=== PATIENT | male | born 1980 | race Two or more races ===

== ENCOUNTER 2024-12-12 07:34 | Day surgery (SDC) | payer MEDICAID, SELFPAY ==
[2024-12-12] VITALS (10 sets, daily range): BP systolic 140–166; BP diastolic 77–102; PULSE 79–107; RESP 16–98; TEMP 36.2–37.6; O2SAT 97–100; BMI 35.9
--- NOTE | 2024-12-12 07:59 | XR_ITS ---
Examination: CT abdomen and pelvis without contrast. Coronal 3-D reconstructions. Sagittal 2-D reconstructions. Date and time of exam:December 12, 2024 0805 hours INDICATIONS: Abdominal pain nausea vomiting today CTDI: vol (mGy): 13.6 DLP: (mGycm): 1050 Technique: Axial images of the abdomen have been obtained, 3 mm slice thickness Intravenous contrast material has not been administered. Low dose protocols were performed. One or more of the following dose reduction techniques were used; automated exposure control, adjustment of the mA and/or KV according to patient size, use of iterative reconstruction technique. Findings: No focal liver or splenic lesions Cholelithiasis, gallbladder wall appears thickened and inflamed No pancreatic or adrenal mass No renal or ureteral calculi No bowel obstruction No free air No pericecal inflammatory change 6 mm bladder calculus Mild osteopenia IMPRESSION: Recommend hepatobiliary sonography follow-up to confirm acute calculus cholecystitis 6 mm bladder calculus
[2024-12-12 08:45] LABS: Basophils # (Auto) 0.1 Thou/mm3 (0.0-0.2); Basophils % (Auto) 1 % (0-2.5); Eosinophils # (Auto) 0.1 Thou/mm3 (0.0-0.5); Eosinophils % (Auto) 1 % (0-10); Hematocrit 45.1 % (41.0-53.0); Hemoglobin 15.9 g/dL (13.5-16.0); Immature Granulocytes % (Auto) 1 % (0-0); Lymphocytes # (Auto) 1.4 Thou/mm3 (1.0-4.8); Lymphocytes % (Auto) 10 % (10-50); Mean Corpuscular HGB Conc 35.3 g/dl (31.0-37.0); Mean Corpuscular Hemoglobin 30.8 pg (25.0-35.0); Mean Corpuscular Volume 87 fL (80-100); Monocytes # (Auto) 1.5 Thou/mm3 (0.0-0.8); Monocytes % (Auto) 12 % (0-12); Neutrophils % (Auto) 76 % (37-80); Nucleated Red Blood Cell % 0 /100 WBC (0); Platelet Count 192 Thou/mm3 (140-440); RDW Standard Deviation 40.3 fL (35.1-43.9); Red Blood Count 5.16 Miln/mm3 (4.50-5.90); White Blood Count 13.2 Thou/mm3 (3.8-10.6)
--- NOTE | 2024-12-12 08:57 | PD.EDRME ---
Rapid Medical Screening Exam RME Arrival date/time: 12/12/24 07:34 44-year-old male presents to the emergency department today complains of abdominal pain Chief Complaint: Abdominal Pain Time Seen by Provider: 12/12/24 07:42 Vital signs: Vital Signs Temperature 98.3 F 12/12/24 08:02 Pulse Rate 107 H 12/12/24 08:02 Respiratory Rate 16 12/12/24 08:02 Blood Pressure 152/98 H 12/12/24 08:02 Pulse Oximetry (%) 97 12/12/24 08:02 Oxygen Delivery Method Room Air 12/12/24 08:02
[2024-12-12 09:26] LABS: Alanine Aminotransferase 8 U/L (10-49); Albumin, Serum 4.7 gm/dL (3.5-5.0); Albumin/Globulin Ratio 1.5 (1.2-2.2); Alkaline Phosphatase 140 U/L (46-116); Anion Gap 14 (7-16); Aspartate Amino Transferase < 10 U/L (0-34); BUN/Creatinine Ratio 10 Ratio (12-20); Bilirubin,Total 1.1 mg/dL (0.3-1.2); Blood Urea Nitrogen 10 mg/dL (9-23); Calcium 10.1 mg/dL (8.3-10.6); Calcium (Corrected) 10.1 mg/dL (8.5-10.1); Chloride 101 mMol/L (98-107); Globulin 3.2 gm/dL (2.3-3.5); Glucose 281 mg/dL (74-106); Lipase 50 U/L (12-53); Osmolality,Calculated 279 (275-295); Potassium 3.6 mMol/L (3.4-5.1); Sodium 135 mMol/L (136-145); Total Protein 7.9 gm/dL (5.7-8.2); eGFR > 60 See Note
--- NOTE | 2024-12-12 09:53 | XR_ITS ---
Examination: Abdomen sonogram, Limited Date and time of exam: December 12, 2024 1007 hours INDICATIONS: Abdominal pain with nausea vomiting beginning 3 days ago Technique: Real-time milton scale transabdominal sonographic images of the upper abdomen obtained. Findings: Cholelithiasis, the largest stone in the gallbladder neck 2.7 cm Gallbladder wall 12 mm with edema Common bile duct 0.3 cm Liver 20.1 cm fatty infiltration hyperechoic mass with lobular margins in the right lobe of the liver, 9.3 x 8.4 cm Normal hepatopedal portal venous flow Patent IVC IMPRESSION: Acute calculus cholecystitis Recommend [address] scan abdomen liver pre and postcontrast to assess the right lobe liver lesion
[2024-12-12 11:00] LABS: Collection Type, Urine Clean Catch; Squamous Epithelial Cell,Urine 0 /hpf (0-5)
[2024-12-12 11:10] LABS: Bilirubin,Urine Negative (Negative); Blood,Urine Negative (Negative); Clarity,Urine Clear (Clear/Hazy); Color,Urine Lt-Yellow (Lt Yel-Yel); Culture Indicated,Urine Not Indicated; Glucose, Urine 4+ (Negative); Hyaline Casts,Urine < 1 /hpf (0-1); Ketones,Urine 4+ (Negative); Leukocyte Esterase,Urine Negative (Negative); Nitrite,Urine Negative (Negative); PH,Urine 5.5 (5.0-7.0); Protein,Urine 1+ (Neg - Trace); RBC,Urine 2 /hpf (0-3); Specific Gravity,Urine 1.045 (1.001-1.035); Urobilinogen,Urine Negative mg/dL (0.0-1.0); WBC,Urine < 1 /hpf (0-5)
--- NOTE | 2024-12-12 12:08 | PD.EDABDPN ---
ED Abdominal Pain RME/HPI General Chief Complaint: Abdominal Pain Stated complaint: ABD PAIN, N/V, DIARRHEA Time seen by provider: 12/12/24 07:42 Arrival date/time: 12/12/24 07:34 RME / HPI RME / HPI narrative: 12/12/24 07:34 44-year-old male presents to the emergency department today complains of abdominal pain DR. XIE MAIN ED EVALUATION: 44 year old male with no past medical history presents to the Emergency Department with complaint of right upper abdominal pain onset 3 days. Pain is described as like a knot , aching and rated moderate in severity. He states these last 3 nights he has not been able to sleep well from the pain. Yesterday, he had an episode of diarrhea. No other symptoms reported at this time. Related Data Allergies Allergy/AdvReac Type Severity Reaction Status Date / Time No Known Allergies Allergy Verified 12/12/24 07:36 Review of Systems Review of Systems Systems Reviewed: All systems reviewed, normal except as documented Narrative Review of Systems: GEN: No fever, no chills, no weight loss EYES: No discharge, no visual changes, no pain HEENT: No ear pain, no congestion, no sore throat PULM: No shortness of breath, no cough, no congestion CV: No chest pain, no dyspnea on exertion, no palpitations GI: No nausea, no vomiting, x1 diarrhea episode yesterday, + right upper abdominal pain, no constipation : No frequency, no urgency and no dysuria MUSC/SKEL: No joint pain, no back pain SKIN: No rash PSYCH: No hallucinations, no depression HEME/LYMPH: No easy bleeding or bruising tendencies NEURO: No weakness, no headache Past Medical History Social History SMOKING STATUS: Never smoker SUBSTANCE USE: does not use ALCOHOL: Never ED Exam Narrative Physical exam: GENERAL APPEARANCE: alert and oriented x 4, well-developed, well-nourished, no acute distress VITALS: All vitals were reviewed and the pulse ox is 97% on room air, which is normal according to my interpretation. HEENT: Normocephalic, atraumatic; pupils equal, round, reactive to light; EOMI; mucous membranes pink, moist; oropharynx clear NECK: Supple LUNGS: CTABL; no wheezes, no rales, no rhonchi HEART: Regular rate, regular rhythm; normal S1, S2; no murmurs ABDOMEN: there is some tenderness in the right flank and right upper quadrant area; normal BS; no masses, no organomegaly, no hernia BACK: no CVA tenderness EXTREMITIES: atraumatic; no edema NEUROLOGIC: awake; alert and oriented x4; cranial nerves II-XII grossly intact; no focal sensory or motor deficits PSYCHIATRIC: appropriate mood and affect SKIN: warm, dry, normal color; no rashes Course Quality Measures none Orders Category Date Time Status NPO NOW Care 12/12/24 12:42 Active Diet NPO (NOW) Diet 12/12/24 12:[address] abdomen pelvis wo con Stat Exams 12/12/24 07:59 Completed US gall bladder Stat Exams 12/12/24 09:53 Completed CBC Stat Lab 12/12/24 08:25 Completed Comprehensive Metabolic Panel Stat Lab 12/12/24 08:25 Completed Lipase Stat Lab 12/12/24 08:25 Completed UA, C/S IF [Urinalysis, C/S if Indicated] Stat Lab 12/12/24 10:57 Completed Morphine Inj Med 12/12/24 12:38 Discontinued 5 mg IVP X1 ONE Ondansetron Inj [Zofran Inj] Med 12/12/24 12:38 Discontinued 4 mg IV X1 ONE Piper/Tazo Inj [Zosyn Inj] 3.375 gm Med 12/12/24 12:38 Active SODIUM CHLORIDE 0.9% (Popper) [Ns 0.9% (P)] 50 ml IV X1 Sodium Chloride 0.9% 1000 ml [Ns] 1,000 ml Med 12/12/24 12:38 Active IV 999 mls/hr Vital Signs Vital signs: Vital Signs Temperature 98.3 F 12/12/24 08:02 Pulse Rate 107 H 12/12/24 08:02 Respiratory Rate 16 12/12/24 08:02 Blood Pressure 152/98 H 12/12/24 08:02 Pulse Oximetry (%) 97 12/12/24 08:02 Oxygen Delivery Method Room Air 12/12/24 08:02 Abdominal Pain MDM MDM Narrative MDM Narrative:: IMonique am scribing for and in the presence of Dr. Xie. Patient data External records reviewed:: None (no previous visits) Clinical information provided by:: patient Social determinants that could affect healthcare access:: none Patient has the following chronic illnesses:: Denies any PMHx, surgeries, daily medications, or known allergies. How is presenting disease/condition affected by chronic disease/condition?: no chronic disease Evaluation data The following diagnostics were reviewed and interpreted by me:: lab results and radiology exam(s) Lab and/or radiology exams considered but not ordered:: none Interpretation Summary: Procedure(s): US gall bladder Accession Number(s): [id number] cc: Kallie MOODY),Aurelio BOWEN; Abdiel Henao MD; NO PRIMARY/FAMILY,PHYSICIAN~ Examination: Abdomen sonogram, Limited Date and time of exam: December 12, 2024 1007 hours INDICATIONS: Abdominal pain with nausea vomiting beginning 3 days ago Technique: Real-time milton scale transabdominal sonographic images of the upper abdomen obtained. Findings: Cholelithiasis, the largest stone in the gallbladder neck 2.7 cm Gallbladder wall 12 mm with edema Common bile duct 0.3 cm Liver 20.1 cm fatty infiltration hyperechoic mass with lobular margins in the right lobe of the liver, 9.3 x 8.4 cm Normal hepatopedal portal venous flow Patent IVC IMPRESSION: Acute calculus cholecystitis Recommend [address] scan abdomen liver pre and postcontrast to assess the right lobe liver lesion Dictated By: Abdiel Henao MD Procedure(s): CT abdomen pelvis wo con Accession Number(s): [id number] cc: Kallie MOODY),Aurelio BOWEN; Abdiel Henao MD; NO PRIMARY/FAMILY,PHYSICIAN~ Examination: CT abdomen and pelvis without contrast. Coronal 3-D reconstructions. Sagittal 2-D reconstructions. Date and time of exam:December 12, 2024 0805 hours INDICATIONS: Abdominal pain nausea vomiting today CTDI: vol (mGy): 13.6 DLP: (mGycm): 1050 Technique: Axial images of the abdomen have been obtained, 3 mm slice thickness Intravenous contrast material has not been administered. Low dose protocols were performed. One or more of the following dose reduction techniques were used; automated exposure control, adjustment of the mA and/or KV according to patient size, use of iterative reconstruction technique. Findings: No focal liver or splenic lesions Cholelithiasis, gallbladder wall appears thickened and inflamed No pancreatic or adrenal mass No renal or ureteral calculi No bowel obstruction No free air No pericecal inflammatory change 6 mm bladder calculus Mild osteopenia IMPRESSION: Recommend hepatobiliary sonography follow-up to confirm acute calculus cholecystitis 6 mm bladder calculus Dictated By: Abdiel Henao MD Medications / Prescriptions Medications or Prescriptions considered but not ordered:: none Medication administrations:: Medication Administration History Sodium Chloride (Ns) 1,000 mls @ 999 mls/hr IV .Q1H1M ONE Stop: 12/12/24 13:38 Piperacillin Sod/Tazobactam (Sod 3.375 gm/ Sodium Chloride) 50 mls @ 100 mls/hr IV X1 ONE Stop: 12/12/24 13:07 Discontinued Medications Morphine Sulfate (Morphine Sulf Inj 10 Mg/Ml Vial) 5 mg IVP X1 ONE Stop: 12/12/24 12:39 Ondansetron HCl (Ondansetron Inj 2 Mg/Ml Inj 2 Ml) 4 mg IV X1 ONE Stop: 12/12/24 12:39 see above if any Consultations Consultation(s) initiated? (list below): Yes Consultation #1 (Physician, Specialty, Details): Discussed test HPI, PMHx, lab, radiology results and/or management with Dr. Waldron. Will consult an admission to the hospitalist. Time: 12:40 Consultation #2 (Physician, Specialty, Details): Discussed test HPI, PMHx, lab, radiology results and/or management with hospitalist. Will admit for further evaluation and management. Accepts patient for admission. Time: 12:45 Diagnosis Differential diagnosis abdominal pain: abdominal pain, calculus of kidney, pancreatitis and other (gallstones) Most likely diagnosis given after review of the tests above:: Acute calculus cholecystitis Admission Indicated Admission indicated?: indicated Admission Request Was there a request for admission?: Yes Admission Attestation Admission request attestation: Discussed case with [] from Hospitalist service regarding admission. Discussed patients ED course, exam findings, labs, and radiology results. The Hospitalist [agrees,declines] to accept the patient for admission. Disposition Plan Disposition Plan: Admit Discharge Plan Plan Patient Disposition: Admit Acute Care w/in Hospital Prescriptions/Referrals Referrals: No Primary/Family,Physician [Primary Care Provider] - In 1 week Problem List Clinical Impression: Acute calculous cholecystitis Patient/Caregiver Discharge Instructions Print Language: Salvadorean Stand Alone Forms: Audrey Award Info., Patient Portal Info Letter
--- NOTE | 2024-12-12 13:05 | ESCONSULT_ITS ---
HPI Consult details Consult date: 12/12/24 Reason for consultation narrative: Right upper quadrant abdominal pain with nausea and vomiting History of present illness: 44-year-old male with history of hypertension and diabetes presented to the emergency department with worsening abdominal pain. His pain started 3 days ago in the epigastric and right upper quadrant. Over the past 2 days his pain has been getting progressively worse and associated with nausea and vomiting. He denies fever, chills, jaundice or discoloration of urine or stool. She denies having similar symptoms in the past. His WBC is elevated at 13.2. His liver en zymes are unremarkable. Abdominal ultrasound and CT scan revealed gallstones with gallbladder wall thickening and edema. Review of Systems Constitutional Constitutional: Denies chills and Denies fever(s) Cardiovascular Cardiovascular: Denies chest pain Respiratory Respiratory: Denies cough Gastrointestinal Gastrointestinal: Reports abdominal pain, Reports nausea and Reports vomiting Genitourinary Genitourinary: Denies difficulty urinating Hematologic/Lymphatic Hematologic/Lymphatic: Denies easy bleeding and Denies easy bruising Past Medical History Surgical History OTHER SURGICAL HX: Right hip surgery Social History SMOKING STATUS: Never smoker SUBSTANCE USE: does not use ALCOHOL: Never Meds Home Medications and Allergies Allergies Allergy/AdvReac Type Severity Reaction Status Date / Time No Known Allergies Allergy Verified 12/12/24 07:36 Exam Vital Signs Temp Pulse Resp BP Pulse Ox O2 Del Method 99.6 F 90 18 153/98 H 98 Room Air 12/12/24 12:11 12/12/24 12:11 12/12/24 12:11 12/12/24 12:11 12/12/24 12:11 12/12/24 12:11 Constitutional Constitutional: no acute distress Routine HEENT Exam Eye: Present PERRL (Anicteric sclera) Routine Abdominal Exam Abdominal: Present soft, normoactive bowel sounds and tenderness (Right upper quadrant tenderness to palpation with guarding, positive Hope sign); Absent distended Results Results: Laboratory Laboratory results: results reviewed Results: Imaging CT scan - abdomen: report reviewed and image reviewed CT scan - pelvis: report reviewed and image reviewed US - abdomen: report reviewed and image reviewed Assessment & Plan Problem List (1) Calculus of gallbladder with acute cholecystitis without obstruction: Status: Acute Plan Will take patient to OR for laparoscopic possible open cholecystectomy. Risks include but not limited to infection, bleeding, injury to bowel, liver, stomach, bile duct, retained stone, bile leak, abdominal sepsis and or abdominal abscess, need for further procedure and or operation discussed with the patient. Benefits and alternatives explained to him, all his questions answered, he agreed and consented to proceed with the operation.
[2024-12-12] MEDS: PIPER/TAZO INJ 3.375 GM in SODIUM CHLORIDE 0.9% (Popper) 50 ML IV ×2 (13:09→21:14)
[2024-12-12] MEDS: SODIUM CHLORIDE 0.9% 1000 ML 1,000 ML 999 ML IV (13:11)
--- NOTE | 2024-12-12 13:19 | PC.NURSE ---
WHEN PLACING IV, THIS RN GOT A CALL FOR REPORT TO SURGERY, RN ASKED THIS RN NOT TO ADMINISTER MORPHINE SO PT CAN BE SOUND OF MIND TO SIGN CONSENTS. THIS RN WASTED MORPHINE W/FELLOW RN.
--- NOTE | 2024-12-12 14:49 | ESOP_ITS ---
Date of Procedure 12/12/24 Pre Op Diagnosis Cholelithiasis with acute cholecystitis Post Op Diagnosis Cholelithiasis with acute cholecystitis Procedure Laparoscopic cholecystectomy Findings Distended gallbladder with gallbladder wall thickening, significant pericholecystic inflammation and large stone near the neck of the gallbladder Procedure Description Patient was brought into the operating room in supine position. After administration of general endotracheal anesthesia abdomen was prepped and draped in standard surgical manner. A Veress needle was inserted through the umbilicus and pneumoperitoneum was obtained up to 15 mmHg. The Veress needle was then removed, a 5 mm infraumbilical incision was made and the 5mm trocar was i nserted. Laparoscopic camera was placed. Under direct visualization a laparoscopic camera a 10 mm trocar was placed in subxiphoid and two 5 mm trocars placed in right upper quadrant. There were some adhesions of omentum into the inferior aspect of the gallbladder and the liver that was divided with electrocautery. The gallbladder was identified and was noted to be tense, distended and thick-walled. The gallbladder was decompressed with an aspirator. There was significant amount of pericholecystic inflammation and a large stone near the neck of the gallbladder. The gallbladder was retracted cephalad and laterally. Dissection started near the infundibulum of gallbladder where cystic duct and gallbladder junction clearly identified. The cystic duct was circumferentially dissected off the peritoneum and surrounding inflammatory tissue. The critical view of safety was clearly demonstrated. Cystic duct was then divided between 2 endoclips proximally and one distally. The cystic artery was similarly dissected and divided. The gallbladder was then from the liver bed using electrocautery. The gallbladder was then placed inside an Endo Catch and removed from the abdomen utilizing subxiphoid trocar site. The area was copiously and thoroughly washed and irrigated, all the fluid was suctioned and the suction fluid returned clear. Hemostasis achieved using electrocautery, also topical hemostatic agent using powdered Surgicel and snow placed at the gallbladder fossa to further assure hemostasis. Endoclips noted be in place and intact without any bleeding or any leakage. Hemostasis was adequate and satisfactory. The subxiphoid trocar sites fascial defect was closed with 0 Vicryl using Endo Closure device. Instruments and trocars removed, pneumoperitoneum was evacuated and the incisions closed with 4-0 Monocryl in subcuticular fashion. Instrument needle and sponge counts were all reported to be correct X2. Patient tolerated the procedure well, was extubated, breathing spontaneously and without difficulty and was transferred to postanesthesia care in stable condition. Anesthesia GETA and local Pathology / specimen Other (Gallbladder and contents) Estimated Blood Loss 50 Condition Stable Disposition PACU Surgeon Dorys Waldron MD Surgical Staff Operation Date: 12/12/24 13:15 Case Staff BONE CHAR KILN TENDER: Rico Heredia RNclinical engineer: Celine Johnson
--- NOTE | 2024-12-12 14:58 | SUR.PHASEI ---
pt received from OR in recovery bay 5. pt obtunded, breathing unlabored on oxymask 10l, oral airway in place. v/s stable. pt dressing to abd dermabond x4 cdi. report received from Pretty KELLY and Juan FLOWERS.
--- NOTE | 2024-12-12 15:30 | SUR.PHASEI ---
pt awake and alert, breathing unlabored on room air. v/s stable. pt dressing abd dermabond x4 cdi. report called to Wilmer KELLY. pt will be transferred to room at this time.
[2024-12-12] MEDS: SODIUM CHLORIDE 0.9% 1000 ML 1,000 ML 100 ML IV (15:54)
--- NOTE | 2024-12-12 16:46 | ESHP_ITS ---
<Statement entered by Thania Heard MD - 12/12/24 17:10> I discussed with and supervised the procurement internship physician who took care of this patient. I personally saw and examined the patient and discussed the assessment and plan with the entire medicine team, including my attending Dr. Galdamez, I agree with the assessment and plan as documented below Patient seen and examined at bedside today. Labs and imaging reviewed. 44-year-old male with past medical history of hypertension, diabetes mellitus type 2 [id number], who came to ED with chief complaint of 3 days of abdominal pain associated to nausea and vomiting. At the ED significant labs show leukocytosis, alk phos 140, CT abdomen pelvis showed 6 mm bladder stone, cholelithiasis as well as gallbladder ultrasound showed acute cholecystitis hyperechoic mass in the liver from the ED general surgery was consulted and patient was admitted for further treatment and management of acute cholecystitis. Thania Heard MD PGY-3 Disclaimer: Despite multiple revisions, due to the dictation software being used, the document bellow may not be free of grammatical errors including phonetic/typographic errors. However, this does not deter from our commitment to providing health care in the patient's best interest in mind. Documentation for date of: 12/12/24 HPI History of Present Illness Chief complaint: Abdominal pain, nausea, vomiting History of present illness: 44 y/o M with PMHx significant for hypertension, diabetes presents with chief complaint abdominal pain x 3 days, with nausea and vomiting x 1 day. Patient states the pain was constant, intermittent, exacerbated by food leading to poor appetite. Patient denies fevers, chills, chest pain, shortness of fatigue, weakness. ED COURSE: Lab significant for: WBC 13.2, alkaline phosphatase 140. Imaging significant for: CT A/P showed 6 mm bladder stone, cholelithiasis. Gallbladder ultrasound showed acute cholecystitis, hyperechoic mass in liver. Patient was taken from ED straight to surgery for laparoscopic cholecystectomy, procedures well-tolerated. PMH: Hypertension, diabetes PSH: Minor procedure on right hip SH: Patient endorses smoking sore daily for 6 months, quit 6 months ago. Quit drinking 6 months ago. Patient reports history of cocaine use, 1 year ago. FH: No known family history Allergies:?NKDA Medications: Lisinopril, glipizide Review of Systems Review of Systems Systems Reviewed: All systems reviewed, normal except as documented Past Medical History Past Medical History Comments PMH COMMENT: PMH: Hypertension, diabetes PSH: Minor procedure on right hip SH: Patient endorses smoking sore daily for 6 months, quit 6 months ago. Quit drinking 6 months ago. Patient reports history of cocaine use, 1 year ago. FH: No known family history Allergies:?NKDA Medications: Lisinopril, glipizide Exam Vital Signs Temp Pulse Resp BP Pulse Ox O2 Del Method O2 Flow Rate 97.4 F 79 19 155/96 H 97 Room Air 5 12/12/24 15:30 12/12/24 15:30 12/12/24 15:30 12/12/24 15:30 12/12/24 15:30 12/12/24 12:11 12/12/24 15:05 Narrative Exam PE: Gen: Well-developed and well-nourished. HEENT: NCAT, PERRLA, EOMI, MMM, anicteric conjunctivae. CVS: normal S1 and S2. RRR. No M/R/G. Resp: CTA B/L. No rhonchi, rales, crackles or wheezing. Abd: soft, non-tender, non-distended. BS+ in all 4 quadrants. Multiple laparoscopic incisions, clean, dry. MSK: Good ROM in BUE & BLE. No edema or rash. Neuro: CN II-XII grossly intact. Strength 5/5 in BUE & BLE. Alert and oriented x3. Psych: appropriate mood and affect. Results: Labs 12/13/24 04:26 12/13/24 04:26 Labs: Short CBC 12/12/24 Range/Units 08:25 WBC 13.2 H (3.8-10.6) Thou/mm3 Hgb 15.9 (13.5-16.0) g/dL Hct 45.1 (41.0-53.0) % Plt Count 192 (140-440) Thou/mm3 BMP 12/12/24 08:25 Sodium 135 L Potassium 3.6 Chloride 101 Carbon Dioxide 20.0 BUN 10 Creatinine 1.0 Glucose 281 H Calcium 10.1 Liver Function 12/12/24 Range/Units 08:25 Total Bilirubin 1.1 (0.3-1.2) mg/dL AST < 10 (0-34) U/L ALT 8 L (10-49) U/L Alkaline Phosphatase 140 H (46-116) U/L Albumin 4.7 (3.5-5.0) gm/dL Urine 12/12/24 Range/Units 10:57 Urine Color Lt-Yellow (Lt Yel-Yel) Urine Clarity Clear (Clear/Hazy) Urine pH 5.5 (5.0-7.0) Ur Specific [place] 1.045 H (1.001-1.035) Urine Protein 1+ A (Neg - Trace) Urine Glucose (UA) 4+ A (Negative) Quality Measures Quality Measures VTE prophylaxis Medications Home Medications and Allergies Allergies Allergy/AdvReac Type Severity Reaction Status Date / Time No Known Allergies Allergy Verified 12/12/24 07:36 Visit Medications Hydrocodone Bitart/Acetaminophen (Hydrocodone/Apap 5/325 Tablet) 1 tab PO Q6HR PRN PRN Reason: PAIN Stop: 12/17/24 15:43 Docusate Sodium (Docusate Sod 100 Mg Capsule) 100 mg PO BID ADAMARIS; Protocol Stop: 01/11/25 20:59 Hydromorphone HCl (Hydromorphone Inj 2 Mg/Ml Vial) 1 mg IVP Q4HR PRN PRN Reason: PAIN Stop: 12/17/24 13:19 Piperacillin Sod/Tazobactam (Sod 3.375 gm/ Sodium Chloride) 50 mls @ 12.5 mls/hr IV Q8HR ADAMARIS; Protocol Stop: 12/19/24 21:59 Sodium Chloride (Ns) 1,000 mls @ 100 mls/hr IV .Q10H ADAMARIS Stop: 01/11/25 13:20 Last Admin: 12/12/24 15:54 Dose: 100 mls/hr Ondansetron HCl (Ondansetron Inj 2 Mg/Ml Inj 2 Ml) 4 mg IV Q6HR PRN; Protocol PRN Reason: NAUSEA OR VOMITING Stop: 01/11/25 13:34 Discontinued Medications Fentanyl Citrate (Fentanyl Cit Inj 50 Mcg/Ml Amp 2ml) 50 mcg IV Q5M PRN PRN Reason: PAIN SCALE 4-6 (Moderate Stop: 12/12/24 15:35 Hydromorphone HCl (Hydromorphone Inj 2 Mg/Ml Vial) 1 mg IVP Q4HR PRN PRN Reason: PAIN Stop: 12/17/24 13:19 Sodium Chloride (Ns) 1,000 mls @ 999 mls/hr IV .Q1H1M ONE Stop: 12/12/24 13:38 Last Admin: 12/12/24 13:11 Dose: 999 mls/hr Piperacillin Sod/Tazobactam (Sod 3.375 gm/ Sodium Chloride) 50 mls @ 100 mls/hr IV X1 ONE Stop: 12/12/24 13:07 Last Admin: 12/12/24 13:09 Dose: 100 mls/hr Acetaminophen (Ofirmev Inj) 1,000 mg in 100 mls @ 250 mls/hr IV PRN PRN PRN Reason: PAIN 1-6 (mild-mod Stop: 12/12/24 15:36 Influenza Virus Vaccine Quadrival (Influenza Virus Quadrivalent 0.5 Ml Syringe) 0.5 ml IMi .ONCE ONE Stop: 12/12/24 15:50 Morphine Sulfate (Morphine Sulf Inj 10 Mg/Ml Vial) 5 mg IVP X1 ONE Stop: 12/12/24 12:39 Last Admin: 12/12/24 13:10 Dose: Not Given Ondansetron HCl (Ondansetron Inj 2 Mg/Ml Inj 2 Ml) 4 mg IV X1 ONE Stop: 12/12/24 12:39 Last Admin: 12/12/24 13:10 Dose: Not Given Assessment & Plan Plan 44 y/o M with PMHx significant for hypertension, diabetes presents with chief complaint abdominal pain x 3 days, with nausea and vomiting x 1 day, admitted for acute cholecystitis requiring laparoscopic cholecystectomy. #Acute cholecystitis s/p laparoscopic cholecystectomy Patient presented with chief complaint of abdominal pain for 3 days, with nausea vomiting x 1 day, exacerbated with food. Imaging confirmed acute calculus cholecystitis. Patient was taken from ED straight to surgery, received laparoscopic cholecystectomy, well-tolerated. Patient seen examined following procedure, doing well, denies abdominal pain. Monitor patient for pain management and toleration of diet, likely DC tomorrow. -[place] 5 1 tab p.o. every 6 hours as needed for pain -Dilaudid 1 mg IV every 4 hours as needed for severe pain -Docusate 100 mg p.o. twice daily -IVF: Normal saline 100 mL/h -Zosyn 3.375 g IV every 8 hours (started 12/16) -Full liquid diet, diabetic -General Surgery following, appreciate recommendations #Diabetes, [id number] Patient has history of diabetes, controlled with p.o. medication. Fingerstick glucose 281 -Insulin sliding scale -A1c ordered, follow-up #6 mm bladder calculus Patient bladder calculus seen on incidental imaging. Patient not complaining of any dysuria. -Tamsulosin #Hypertension Patient has history of hypertension, controlled with outpatient lisinopril. -Holding home meds currently #Liver mass, incidental finding Gallbladder ultrasound showed hyperechoic liver mass. Further imaging not done this time due to recent procedure. -Follow-up outpatient DVT prophylaxis: SCDs GI prophylaxis: None Diet: Diabetic full liquid Lines: Peripheral IV Code status: Full code Plan of care discussed with senior resident Dr. Heard PGY?[address] Galdamez. Eduardo Salazar MD PGY?1 Attending Provider Attestation/Addendum Daya Velasquez, DO, attest that I was physically present for the stoner portions of the service and evaluated the patient with the resident and I reviewed and discussed the case with the resident and agree with the resident's findings and plans of care as documented above Patient is a 44-year-old male with past medical history of hypertension and type II non-insulin dependent diabetes who presented to the ED with worsening abdominal pain for the past 3 days. Patient states that he last ate yesterday and has had several episodes of nausea and vomiting since. Pain is worse with food. Patient states that the pain is around his epigastrium and radiates diffusely. He describes it as sharp pain. Upon evaluation in the ED, CT abdomen pelvis was done showing evidence of cholelithiasis and a 6 mm bladder stone. Gallbladder ultrasound was also done showing acute cholecystitis and an hyperechoic mass in the liver. Patient denies any active alcohol use, drug use or tobacco use. Patient noted to have a leukocytosis 13.2 on presentation he denies any fevers or chills. Will admit to [facility] for acute cholecystitis and place patient on IV Zosyn at this time. Case discussed with surgeon and will go to surgery at this time. He will maintain n.p.o. until after surgery and diet can be advanced by surgeon. Will continue with pain control as needed. Will start patient on Flomax after surgery due to evidence of 6 mm bladder stone. Patient denies any dysuria otherwise. Will inform patient regarding mass and liver for further outpatient workup and imaging.
[2024-12-12] MEDS: INSULIN LISPRO (AdmeLOG) 1 UNIT/0.01 ML UNIT SC (16:59)
[2024-12-12] MEDS: DOCUSATE SOD 100 MG CAPSULE PO (20:04)
[2024-12-12] MEDS: TAMSULOSIN HCL 0.4 MG CAPSULE PO (20:04)
[2024-12-13] VITALS: BP 115/86; PULSE 62; RESP 18; TEMP 36.8; O2SAT 96
[2024-12-13] MEDS: SODIUM CHLORIDE 0.9% 1000 ML 1,000 ML 100 ML IV ×2 (02:14→11:52)
[2024-12-13 04:00] VITALS: BP 130/90; PULSE 96; RESP 18; TEMP 36.4; O2SAT 97
[2024-12-13] MEDS: PIPER/TAZO INJ 3.375 GM in SODIUM CHLORIDE 0.9% (Popper) 50 ML IV ×2 (05:15→13:27)
[2024-12-13 05:44] LABS: Basophils % (Auto) 0 % (0-2.5); Eosinophils % (Auto) 0 % (0-10); Hematocrit 40.2 % (41.0-53.0); Hemoglobin 13.8 g/dL (13.5-16.0); Immature Granulocytes % (Auto) 1 % (0-0); Lymphocytes % (Auto) 8 % (10-50); Mean Corpuscular HGB Conc 34.3 g/dl (31.0-37.0); Mean Corpuscular Hemoglobin 30.7 pg (25.0-35.0); Mean Corpuscular Volume 89 fL (80-100); Monocytes # (Auto) 1.2 Thou/mm3 (0.0-0.8); Monocytes % (Auto) 9 % (0-12); Neutrophils # (Auto) 10.7 Thou/mm3 (1.8-7.7); Neutrophils % (Auto) 82 % (37-80); Nucleated Red Blood Cell % 0 /100 WBC (0); Platelet Count 181 Thou/mm3 (140-440); RDW Standard Deviation 41.5 fL (35.1-43.9)
[2024-12-13 06:06] LABS: Glucose Estimated Average 324 mg/dL (80-131); Hemoglobin A1C 12.9 % Hgb (4.8-6.0)
[2024-12-13 06:36] LABS: Alanine Aminotransferase 98 U/L (10-49); Albumin, Serum 4.3 gm/dL (3.5-5.0); Albumin/Globulin Ratio 1.5 (1.2-2.2); Alkaline Phosphatase 195 U/L (46-116); Anion Gap 13 (7-16); Aspartate Amino Transferase 131 U/L (0-34); BUN/Creatinine Ratio 16 Ratio (12-20); Bilirubin,Total 0.8 mg/dL (0.3-1.2); Blood Urea Nitrogen 16 mg/dL (9-23); Calcium 9.9 mg/dL (8.3-10.6); Calcium (Corrected) 9.9 mg/dL (8.5-10.1); Carbon Dioxide 20.1 mMol/L (20.0-31.0); Chloride 104 mMol/L (98-107); Globulin 2.8 gm/dL (2.3-3.5); Glucose 228 mg/dL (74-106); Osmolality,Calculated 282 (275-295); Sodium 137 mMol/L (136-145); Total Protein 7.1 gm/dL (5.7-8.2); eGFR > 60 See Note
--- NOTE | 2024-12-13 07:24 | PD.RESPRO ---
Documentation for date of: 12/13/24 Exam Vital Signs Temp Pulse Resp BP Pulse Ox O2 Del Method O2 Flow Rate 97.5 F 96 18 130/90 H 97 Room Air 5 12/13/24 04:00 12/13/24 04:00 12/13/24 04:00 12/13/24 04:00 12/13/24 04:00 12/13/24 04:00 12/12/24 15:05 Objective Labs 12/13/24 04:26 12/13/24 04:26 Labs: Laboratory Results - last 24 hr 12/12/24 12/12/24 12/13/24 08:25 10:57 04:26 WBC 13.2 H 13.0 H RBC 5.16 4.50 Hgb 15.9 13.8 D Hct 45.1 40.2 L MCV 87 89 MCH 30.8 30.7 MCHC 35.3 34.3 RDW Std Deviation 40.3 41.5 Plt Count 192 181 Neut % (Auto) 76 82 H Lymph % (Auto) 10 8 L [place] % (Auto) 12 9 Eos % (Auto) 1 0 Baso % (Auto) 1 0 Neut # (Auto) 10.0 H 10.7 H Lymph # (Auto) 1.4 1.0 [place] # (Auto) 1.5 H 1.2 H Eos # (Auto) 0.1 0.0 Baso # (Auto) 0.1 0.0 Immature Gran # (Auto) 0.10 H 0.10 H Absolute Nucleated RBC 0.00 0.00 Immature Gran % 1 H 1 H Nucleated RBC % 0 0 Sodium 135 L 137 Potassium 3.6 4.0 Chloride 101 104 Carbon Dioxide 20.0 20.1 Anion Gap 14 13 BUN 10 16 Creatinine 1.0 1.0 Estim Creat Clear Calc 137.0 137.0 eGFR > 60 > 60 BUN/Creatinine Ratio 10 L 16 Glucose [address] Glu mg/dL 324 H Hemoglobin A1c 12.9 H Calculated Osmolality 279 282 Calcium 10.1 9.9 Corrected Calcium 10.1 9.9 Phosphorus 3.0 Magnesium 2.0 Total Bilirubin 1.1 0.8 AST < 10 131 H ALT 8 L 98 H Alkaline Phosphatase 140 H 195 H D Total Protein 7.9 7.1 Albumin 4.7 4.3 Globulin 3.2 2.8 Albumin/Globulin Ratio 1.5 1.5 Lipase 50 Ur Collection Type Clean Catch Urine Color Lt-Yellow Urine Clarity Clear Urine pH 5.5 Ur Specific [place] 1.045 H Urine Protein 1+ A Urine Glucose (UA) 4+ A Urine Ketones 4+ A Urine Blood Negative Urine Nitrite Negative Urine Bilirubin Negative Urine Urobilinogen (Auto) Negative Ur Leukocyte Esterase Negative Urine RBC 2 Urine WBC < 1 Ur Squamous Epith Cells 0 Urine Bacteria None Hyaline Casts < 1 Ur Culture Indicated? Not Indicated Quality Measures Quality Measures VTE prophylaxis Assessment & Plan Assessment Current Active Medications: Generic Name Dose Route Start Last Admin Trade Name Freq PRN Reason Stop Dose Admin Acetaminophen 650 mg 12/12/24 16:48 Acetaminophen 325 Mg Tablet PO 01/11/25 16:47 Q6H PRN Fever >100.4 or pain 1-3 Hydrocodone Bitart/Acetaminophen 1 tab 12/12/24 15:44 Hydrocodone/Apap 5/325 Tablet PO 12/17/24 15:43 Q6HR PRN PAIN Protocol Dextrose 25 ml 12/12/24 16:50 Dextrose 50%-Water Inj 50 Ml Syringe IV 01/11/25 16:49 Q15MIN PRN BG 50-70 responsive npo pt Dextrose 50 ml 12/12/24 16:50 Dextrose 50%-Water Inj 50 Ml Syringe IV 01/11/25 16:49 Q15MIN PRN BG <50 OR BG <70 & pt unresponsive Docusate Sodium 100 mg 12/12/24 21:00 12/12/24 20:04 Docusate Sod 100 Mg Capsule PO 01/11/25 20:59 100 mg BID ADAMARIS Administration Protocol Glucagon 1 mg 12/12/24 16:50 Glucagon Inj 1 Mg Vial IM Q15MIN PRN BG <70, and no IV access Hydromorphone HCl 1 mg 12/12/24 15:45 Hydromorphone Inj 2 Mg/Ml Vial IVP 12/17/24 13:19 Q4HR PRN PAIN Protocol Piperacillin Sod/Tazobactam 50 mls @ 12.5 mls/hr 12/12/24 22:00 12/13/24 05:15 Sod 3.375 gm/ Sodium Chloride IV 12/19/24 21:59 12.5 mls/hr Q8HR ADAMARIS Administration Protocol Sodium Chloride 1,000 mls @ 100 mls/hr 12/12/24 13:21 12/13/24 02:14 Ns IV 01/11/25 13:20 100 mls/hr .Q10H ADMAARIS Administration Insulin Human Lispro 0 unit 12/12/24 17:00 12/12/24 16:59 Insulin Lispro (Admelog) 1 Unit/0.01 Ml Unit SC 01/11/25 16:59 4 unit AC ADAMARIS Administration Protocol Ondansetron HCl 4 mg 12/12/24 13:35 Ondansetron Inj 2 Mg/Ml Inj 2 Ml IV 01/11/25 13:34 Q6HR PRN NAUSEA OR VOMITING Protocol Tamsulosin HCl 0.4 mg 12/12/24 20:00 12/12/24 20:04 Tamsulosin Hcl 0.4 Mg Capsule PO 01/11/25 19:59 0.4 mg QDAY ADAMARIS Administration
[2024-12-13] MEDS: INSULIN LISPRO (AdmeLOG) 1 UNIT/0.01 ML UNIT SC ×3 (07:54→17:48)
[2024-12-13 08:00] VITALS: BP 143/89; PULSE 81; RESP 18; TEMP 36.1; O2SAT 97
[2024-12-13] MEDS: DOCUSATE SOD 100 MG CAPSULE PO (08:46)
[2024-12-13] MEDS: TAMSULOSIN HCL 0.4 MG CAPSULE PO (08:46)
[2024-12-13 08:58] VITALS: PULSE 96; RESP 18; RESP 98
--- NOTE | 2024-12-13 11:55 | PD.SURPROG ---
Documentation for date of: 12/13/24 Subjective Subjective Narrative: Patient is seen and examined. Pain is improving. He denies nausea or vomiting Exam Vital Signs Temp Pulse Resp BP Pulse Ox O2 Del Method O2 Flow Rate 97.0 F 96 18 143/89 H 97 Room Air 5 12/13/24 08:00 12/13/24 08:58 12/13/24 08:58 12/13/24 08:00 12/13/24 08:00 12/13/24 08:00 12/13/24 08:00 Constitutional Constitutional: no acute distress Routine Abdominal Exam Comments: Abdomen is soft and nondistended. Incisions are clean, dry and intact. He has minimal epigastric incisional tenderness. Assessment & Plan Assessment Additional comments: Postop day #1 status post laparoscopic cholecystectomy Plan May discharge home Procedures Procedures Laparoscopic cholecystectomy
[2024-12-13 12:00] VITALS: BP 143/85; PULSE 95; RESP 18; TEMP 36.1; O2SAT 98
--- NOTE | 2024-12-13 12:01 | ESDS_ITS ---
<Statement entered by Daya Galdamez DO - 12/14/24 13:32> I, Daya Galdamez DO, attest that I was physically present for the stoner portions of the service and evaluated the patient with the resident and I reviewed and discussed the case with the resident and agree with the resident's findings and plans of care as documented above Planned Discharge Date 12/13/24 DS: Providers Provider Date of admission: 12/12/24 13:05 Primary care physician: Physician No Primary/Family Admitting Provider: Daya Galdamez DO Attending Provider on Admission: Daya Galdamez DO Attending Provider on DC: Thania Heard MD Discharging Provider: Thania Heard MD DS: Diagnosis Problem List Completed Was Problem List Reviewed/Reconciled?: Yes Hospital Course Hospital Course Hospital course: 44-year-old male with past medical history of hypertension, diabetes mellitus type 2 [id number], who came to ED with chief complaint of 3 days of abdominal pain associated to nausea and vomiting. At the ED significant labs show leukocytosis, alk phos 140, CT abdomen pelvis showed 6 mm bladder stone, cholelithiasis as well as gallbladder ultrasound showed acute cholecystitis hyperechoic mass in the liver from the ED general surgery was consulted and patient was admitted for further treatment and management of acute cholecystitis and underwent laparoscopic cholecystectomy without any complications during the procedure. This morning the bedside patient is AOx4, respond to questions properly, ambulating, tolerating p.o. he stated he feeling well and endorsed minimal pain, denied nausea vomiting or any other associated symptoms at this moment per general surgery recommendations patient can be discharged home. All questions were answered recommendation were given to at the ER at any time if symptoms become worse or do not improve. Follow-up with PCP Dr. Smith at the [facility] in 5 to 7 days after discharge ? Continue home medications glipizide 5 mg p.o. twice daily ? Continue home lisinopril 20 mg p.o. daily ? Continue tamsulosin 0.4 mg p.o. daily ? [place] 1 tablet p.o. every 6 hours as needed for pain ? Docusate sodium 100 as p.o. twice daily ? Outpatient CT abdomen for liver mass #Acute cholecystitis s/p laparoscopic cholecystectomy #Diabetes, Type 2 [id number] #6 mm bladder calculus #Hypertension #Liver mass, incidental finding Patient discussed with attending Dr Denice Heard MD PGY-3 Disclaimer: Despite multiple revisions, due to the dictation software being used, the document bellow may not be free of grammatical errors including phonetic/typographic errors. However, this does not deter from our commitment to providing health care in the patient's best interest in mind. Status at Discharge Functional status at discharge: independent ambulation Time Spent with Patient Time attestation: Total time spent providing and/or coordinating discharge services: Time spent: Greater than 30 minutes Exam Vital Signs Temp Pulse Resp BP Pulse Ox O2 Del Method O2 Flow Rate 97.0 F 96 18 143/89 H 97 Room Air 5 12/13/24 08:00 12/13/24 08:58 12/13/24 08:58 12/13/24 08:00 12/13/24 08:00 12/13/24 08:00 12/13/24 08:00 Narrative Exam General: No acute distress, well appearing, alert, interactive. HEENT: NC/AT, PERRL, EOMI, Good conjugate gaze, moist mucous membranes, oropharynx clear. Neck: Supple, No masses, No adenopathy, carotid pulse 2+ bilaterally without bruits, No JVD, normal range of motion. Chest: Symmetrical, atraumatic, and with equal expansion , Nontender on palpation no deformity and no crepitus. CVS: S1 and S2 present, Regular rate and rhythm, No murmurs, rubs or gallops perceived during auscultation. Lungs: Normal respiratory effort, CTAB, no wheezing, rhonchi or rales perceived during auscultation, No intercostal or subcostal retraction. Abdomen : Soft, mildly distended, mild tenderness to palpation in all abdominal quadrants, lap incisions clean, guarding ,no rebound, +BS Extremities: No edema, warm well perfused, normal tone and ROM, strength and sensation intact, cap refill less than 2, +2 dp equal bilaterally, able to move all 4 extremities spontaneously. Skin: Intact, no rashes, no lesions, no erythema or jaundice noted Neuro: AOx4, cranial nerves II through XII intact, reflex symmetric and sensation normal, no focal neurologic deficits noted, GCS 15 Psych: Appropriate mood and affect. Discharge Plan Plan Patient Disposition: HOME (Self Care) Patient condition on transfer: Stable Care Plan Goals: All questions were answered recommendation were given to at the ER at any time if symptoms become worse or do not improve. Follow-up with PCP Dr. Smith at the [facility] in 5 to 7 days after discharge ? Continue home medications glipizide 5 mg p.o. twice daily ? Continue home lisinopril 20 mg p.o. daily ? Continue tamsulosin 0.4 mg p.o. daily ? [place] 1 tablet p.o. every 6 hours as needed for pain ? Docusate sodium 100 as p.o. twice daily ? Outpatient CT abdomen for liver mass Prescriptions/Referrals Prescriptions/Med Rec: New hydrocodone-acetaminophen 5-325 mg Tablet 1 tab PO Q6HR MDD 4 PRN (Reason: pain (scale score 7-10)) Qty: 10 0RF docusate sodium 100 mg Capsule 100 mg PO BID Qty: 30 0RF ibuprofen 600 mg tablet 600 mg PO Q8H PRN (Reason: pain (scale score 4-6)) Qty: 15 0RF glipizide 5 mg tablet 5 mg PO BID 30 Days Qty: 60 0RF lisinopril 20 mg tablet 20 mg PO QDAY 30 Days Qty: 30 0RF tamsulosin [Flomax] 0.4 mg capsule 0.4 mg PO QDAY 30 Days Qty: 30 0RF Referrals: No Primary/Family,Physician [Primary Care Provider] - Patient/Caregiver Discharge Instructions Meds to Beds: No Discharge Activity: activity as tolerated Education Materials: Preventing Surgical Site Infections Print Language: Mauritian Activity Restrictions/Additional Instructions: May shower. Avoid lifting, straining, pulling or pushing for 4 weeks. May take over the counter laxatives if no bowel movement in 2 days. Follow up with Dr. Waldron in 2 weeks, call [phone] for an appointment. Continue low-fat diet for 1 week then advance diet as tolerated. Stand Alone Forms: Audrey Award Info., Patient Portal Info Letter Discharge Order Discharge Orders: Discharge (Routine); Ordered 12/13/24 Ordered By: Thania Heard Quality Discharge Quality Measures VTE prophylaxis
[2024-12-13 16:00] VITALS: BP 126/73; PULSE 100; RESP 18; TEMP 36.6; O2SAT 96
--- NOTE | 2024-12-13 17:19 | PC.SS ---
Kenny Escoto is 44 year old male admitted to [facility] for aute cholecystisis. SS conducted bedside contact with the patient to complete initial assessment and to discuss discharge planning.? SW used all precautionary measures to complete initial. Role and reason for the contact was explained to Kenny. Pt is alert and oriented times 4. Patient confirmed demographic information confirmed living at residence on facesheet with his mother. Patient identifies Charisse Escoto, mother, as his surrogate decision maker. Pt states prior to hospitalization he is able to independent with ADL, and does not have DME nor O2. Pt confirmed no history of mental health or substance abuse. Pt recently moved back to [place] and will be utilizing the clinic provided by [facility] residents. Pharmacy [facility] choice [facility] [address]. Discharge options discussed and the pt return home. Family will provide transportation upon D/C. No further intervention required at this time, case management social worker would be available to address any further concerns. DC Plan: Home Contact: Charisse Escoto mother, Address: Confirmed on face sheet PCP: Clinic provided by [facility] Residents
== END 2024-12-13 18:10 | disposition home or self-care (01) ==
LOC: SERX 12:50 → SERHOLD 13:34 → S3NX 12-13 13:02 → S2EX 12-17 09:10 → S3NX 12-17 09:10
PROVIDERS: Nurse Practitioner Primary Care; Surgery; Emergency Provider Emergency Medicine; Visit Provider Internal Medicine
PROC: 0FT44ZZ Resection of Gallbladder, Percutaneous Endoscopic Approach (ICD-10-PCS; CPT 47562; principal; 2024-12-12 13:00)
DX: K80.00 Calculus of gallbladder with acute cholecystitis without obstruction (principal)
CPT/HCPCS: 47562; 36415; 74176; 76705; 80053; 81001; 83036; 83690; 83735; 84100; 85025; 99285; A4217; A4649; J1100; J1815; J1885; J2250; J2405; J2543; J2704; J3010; J3490; J7030; J7050; A9270